=== PATIENT | male | born 1975 | race African-American/Black ===

== ENCOUNTER 2016-08-01 07:52 | Emergency (ER) | payer SELFPAY ==
[~2016-08-01] VITALS: Ht 172.7 cm; Wt 65.8 kg
[2016-08-01 07:55] VITALS: BP 112/74
[2016-08-01] MEDS ORDERED: NITROGLYCERIN SINGLE TAB 0.4 MG SL ONE (08:17)
[2016-08-01] MEDS ORDERED: AZITHROMYCIN 500 MG TABLET PO ONE (08:30)
[2016-08-01] MEDS ORDERED: CEFTRIAXONE 250 MG IM ONE (08:30)
[2016-08-01] MEDS ORDERED: AZITHROMYCIN 250 MG TABLET ONE (08:37)
[2016-08-01] MEDS ORDERED: CEFTRIAXONE 1,000 MG ONE (08:38)
== END 2016-08-01 09:22 | disposition home or self-care (01) ==
LOC: ED 09:16
DX: Z20.2 Contact with and (suspected) exposure to infections with a predominantly sexual mode of transmission (principal); F17.210 Nicotine dependence, cigarettes, uncomplicated
CPT/HCPCS: 87491; 87591; 96372; 99284; J0696

== ENCOUNTER 2017-02-04 20:13 | Emergency (ER) | payer OTHER ==
[~2017-02-04] VITALS: Ht 172.7 cm; Wt 65.1 kg
[2017-02-04] MEDS ORDERED: KETOROLAC 30 MG/1 ML ONE (20:53)
[2017-02-04] MEDS ORDERED: KETOROLAC 30 MG/1 ML IVPush ONE (21:00)
[2017-02-04 21:13] LABS: BASOPHILS # (AUTO) 0.05 x10^3/uL (0-0.1); BASOPHILS % (AUTO) 1 % (0-1); EOSINOPHILS # (AUTO) 0.46 x10^3/uL (0-0.4); EOSINOPHILS % (AUTO) 7 % (1-7); LYMPHOCYTES # (AUTO) 3.56 x10^3/uL (1-3.4); LYMPHOCYTES % (AUTO) 50 % (22-44); MD NO; MEAN CORPUSCULAR HEMOGLOBIN 28.6 pg (27.5-34.5); MEAN CORPUSCULAR HGB CONC 32.9 g/dL (33.2-36.2); MEAN CORPUSCULAR VOLUME 87.1 fL (81-97); MEAN PLATELET VOLUME 7.8 fL (7.4-10.4); MONOCYTES # (AUTO) 0.38 x10^3/uL (0.2-0.8); MONOCYTES % (AUTO) 5 % (2-9); NEUTROPHILS # (AUTO) 2.65 x10^3/uL (1.8-6.8); NEUTROPHILS % (AUTO) 37 % (42-75); PLATELET COUNT 313 x10^3/uL (130-400); RED BLOOD COUNT 5.49 x10^6/uL (4.38-5.82); RED CELL DISTRIBUTION WIDTH 13.8 % (9.4-14.8)
[2017-02-04 21:16] LABS: ALANINE AMINOTRANSFERASE 27 U/L (12-78); ALBUMIN 3.7 g/dL (3.4-5.0); ANION GAP 5 mmol/L (5-15); CALCIUM 8.9 mg/dL (8.5-10.1); CHLORIDE 108 mmol/L (98-107); CREATININE 1.23 mg/dL (0.7-1.3)
[2017-02-04 21:20] LABS: ALKALINE PHOSPHATASE 75 U/L (45-117); BILIRUBIN,TOTAL 0.8 mg/dL (0.2-1.0); TOTAL PROTEIN 7.2 g/dL (6.4-8.2); TROPONIN I < 0.015 ng/mL (0.000-0.045)
[2017-02-04 21:44] VITALS: BP 123/76
== END 2017-02-04 21:55 | disposition home or self-care (01) ==
LOC: ED 21:47
DX: R07.89 Other chest pain (principal); F17.210 Nicotine dependence, cigarettes, uncomplicated
CPT/HCPCS: 36415; 71020; 80053; 83690; 84484; 85025; 93005; 96374; 99285; J1885

== ENCOUNTER 2017-02-20 23:29 | Inpatient (IN) | payer OTHER ==
[~2017-02-20] VITALS: Ht 172.7 cm; Wt 61.4 kg
[2017-02-21] MEDS ORDERED: ONDANSETRON 2MG/ML, 2ML IVPush ONE
[2017-02-21] MEDS ORDERED: KETOROLAC 30 MG/1 ML IVPush ONE
[2017-02-21] MEDS ORDERED: SODIUM CHLORIDE FLUSH 10ML SYR IVF ONE
[2017-02-21] MEDS ORDERED: ONDANSETRON 2MG/ML, 2ML ONE (00:02)
[2017-02-21] MEDS ORDERED: MORPHINE SULFATE 4 MG/ML, 1ML ONE ×3 (00:02→03:04)
[2017-02-21] MEDS ORDERED: KETOROLAC 30 MG/1 ML ONE (00:02)
[2017-02-21] MEDS: MORPHINE SULFATE 4 MG/ML, 1ML IVPush PRN ×2 (00:07→01:31)
[2017-02-21 00:18] LABS: MEAN CORPUSCULAR HEMOGLOBIN 28.1 pg (27.5-34.5); MEAN CORPUSCULAR HGB CONC 32.7 g/dL (33.2-36.2); MEAN CORPUSCULAR VOLUME 85.9 fL (81-97); MEAN PLATELET VOLUME 7.4 fL (7.4-10.4); PLATELET COUNT 218 x10^3/uL (130-400); RED BLOOD COUNT 5.31 x10^6/uL (4.38-5.82); RED CELL DISTRIBUTION WIDTH 13.1 % (9.4-14.8)
[2017-02-21 00:29] LABS: ALBUMIN 3.2 g/dL (3.4-5.0); ANION GAP 9 mmol/L (5-15); CALCIUM 8.9 mg/dL (8.5-10.1); CHLORIDE 107 mmol/L (98-107); CREATININE 0.98 mg/dL (0.7-1.3)
[2017-02-21 00:53] LABS: BASOPHILS # (AUTO) 0.01 x10^3/uL (0-0.1); BASOPHILS % (AUTO) 0 % (0-1); EOSINOPHILS % (AUTO) 0 % (1-7); LYMPHOCYTES # (AUTO) 0.84 x10^3/uL (1-3.4); LYMPHOCYTES % (AUTO) 5 % (22-44); MD SCAN; MONOCYTES # (AUTO) 1.04 x10^3/uL (0.2-0.8); MONOCYTES % (AUTO) 6 % (2-9); NEUTROPHILS # (AUTO) 16.35 x10^3/uL (1.8-6.8); NEUTROPHILS % (AUTO) 90 % (42-75)
[2017-02-21] MEDS ORDERED: AMPICILLIN/SULBACTAM 3 GM in SODIUM CHLORIDE 0.9% 100 ML IV ONE (01:30)
[2017-02-21] MEDS ORDERED: SODIUM CHLORIDE 0.9% 1,000ML IVBOLUS ONE ×2 (01:30)
[2017-02-21] MEDS ORDERED: OMNIPAQUE 350 MG/ML, 100ML BOTTLE ONE (02:49)
[2017-02-21] MEDS ORDERED: LIDOCAINE 1%, 20ML INFIL ONE (03:00)
[2017-02-21] MEDS ORDERED: MORPHINE SULFATE 4 MG/ML, 1ML IVPush ONE (03:00)
[2017-02-21] MEDS ORDERED: BENZOCAINE 20% SPRAY 0.5ML TP ONE (03:00)
[2017-02-21] MEDS ORDERED: LIDOCAINE 1%, 20ML ONE (03:04)
[2017-02-21] MEDS ORDERED: BENZOCAINE 20% SPRAY 0.5ML ONE (03:04)
[2017-02-21] MEDS ORDERED: DEXAMETHASONE 4 MG/ML, 1ML IVPush ONE (04:00)
[2017-02-21] MEDS ORDERED: DEXAMETHASONE 4 MG/ML, 1ML ONE (04:17)
[2017-02-21] MEDS ORDERED: POTASSIUM CHLORIDE 20 MEQ in D5%-0.45% NACL 1,000 ML IV ONE (04:19)
[2017-02-21] MEDS ORDERED: ONDANSETRON 2MG/ML, 2ML IVPush PRN ×2 (04:30→14:00)
[2017-02-21] MEDS ORDERED: SODIUM CHLORIDE FLUSH 10ML SYR IVF PRN (04:30)
[2017-02-21] MEDS ORDERED: MORPHINE SULFATE 4 MG/ML, 1ML IVPush PRN ×2 (04:30→09:30)
[2017-02-21 05:36] VITALS: BP 111/72
[2017-02-21 07:49] VITALS: BP 105/71
[2017-02-21] MEDS ORDERED: HYDROcodone/APAP 7.5-325MG/15ML UDC PO PRN ×2 (09:30→14:00)
[2017-02-21] MEDS: LACTATED RINGERS 1,000 ML IV SCH (09:46)
[2017-02-21] MEDS: DEXTROSE 5% IV SCH ×2 (09:47→20:25)
[2017-02-21] MEDS: DEXAMETHASONE IV SCH ×2 (09:47→20:25)
[2017-02-21] MEDS: AMPICILLIN/SULBACTAM 3 GM in SODIUM CHLORIDE 0.9% 100 ML IV SCH ×2 (11:03→18:04)
[2017-02-21 12:47] VITALS: BP 104/73
[2017-02-21] MEDS ORDERED: FENTANYL PF 250 MCG/5ML ONE (12:49)
[2017-02-21] MEDS ORDERED: MIDAZOLAM 1 MG/ML, 2ML ONE (12:49)
[2017-02-21] MEDS ORDERED: OXYMETAZOLINE NASAL SPRAY 0.05%, 15ML ONE (13:08)
[2017-02-21] MEDS ORDERED: LABETALOL 5MG/ML, 20ML ONE (13:30)
[2017-02-21] MEDS ORDERED: PROPOFOL 10 MG/ML, 20ML ONE (13:30)
[2017-02-21] MEDS ORDERED: ESMOLOL 100 MG/10 ML ONE (13:30)
[2017-02-21] MEDS ORDERED: OXYcodone 5 MG/5 ML ORAL.SOL UDC PO PRN (14:00)
[2017-02-21] MEDS ORDERED: PROMETHAZINE 25 MG/ML, 1ML IV PRN (14:00)
[2017-02-21] MEDS ORDERED: HYDROmorphone 1 MG/ML, 1ML IV PRN (14:00)
[2017-02-21] MEDS ORDERED: MEPERIDINE/PF 25MG/0.5ML IVPush PRN (14:00)
[2017-02-21] MEDS ORDERED: FENTANYL PF 100 MCG/2ML IV PRN (14:00)
[2017-02-21] MEDS ORDERED: ACETAMINOPHEN 325 MG TABLET PO PRN (14:00)
[2017-02-21] MEDS ORDERED: HYDROmorphone 1 MG/ML, 1ML ONE (14:10)
[2017-02-21] MEDS ORDERED: hydrALAzine 20 MG/ML, 1ML ONE (15:41)
[2017-02-21] MEDS ORDERED: hydrALAzine 20 MG/ML, 1ML IV PRN ×2 (16:00→17:30)
[2017-02-21] MEDS: HYDROmorphone 2MG TABLET PO PRN ×2 (18:11→22:16)
[2017-02-21 20:18] VITALS: BP 128/70
[2017-02-22 00:13] VITALS: BP 119/72
[2017-02-22] MEDS: AMPICILLIN/SULBACTAM 3 GM in SODIUM CHLORIDE 0.9% 100 ML IV SCH ×2 (01:55→10:12)
[2017-02-22] MEDS: HYDROmorphone 2MG TABLET PO PRN ×3 (02:24→10:46)
[2017-02-22] MEDS: DEXTROSE 5% IV SCH (03:31)
[2017-02-22] MEDS: DEXAMETHASONE IV SCH (03:31)
[2017-02-22 03:53] VITALS: BP 111/66
[2017-02-22 07:29] VITALS: BP 114/62
[2017-02-22] MEDS: LACTATED RINGERS 1,000 ML IV SCH (09:49)
[2017-02-22] MEDS ORDERED: HYDR2TAB29 PO (11:16)
[2017-02-22] MEDS ORDERED: CEPH-368 PO (11:16)
== END 2017-02-22 11:25 | disposition home or self-care (01) | DRG 854 ==
LOC: ED 23:48 → EDIP 02-21 04:38 → 4NOR 02-21 04:40 → DCLOUNGE 02-22 11:05
PROVIDERS: ADMIT Otolaryngology; ATTEND Otolaryngology
PROC: 0CTPXZZ Resection of Tonsils, External Approach (ICD-10-PCS; principal; 2017-02-21 13:30)
DX: A41.9 Sepsis, unspecified organism (principal); J36 Peritonsillar abscess; Z87.891 Personal history of nicotine dependence
CPT/HCPCS: 10060; 36415; 70491; 80048; 82040; 85025; 87040; 88304; 96361; 96365; 96375; 96376; J0295; J1100; J1170; J1885; J2250; J2405; J2704; J3010; J3480; J3490; Q9967; J7030; J7120

== ENCOUNTER 2017-08-14 17:37 | Emergency (ER) | payer SELFPAY ==
[~2017-08-14] VITALS: Ht 172.7 cm; Wt 57.5 kg
[~2017-08-14 17:37] MED LIST: CEPH-368 PO; HYDR2TAB29 PO
[2017-08-14 17:50] VITALS: BP 112/77
[2017-08-14 18:43] LABS: BASOPHILS # (AUTO) 0.04 x10^3/uL (0-0.1); BASOPHILS % (AUTO) 0 % (0-1); EOSINOPHILS # (AUTO) 0.14 x10^3/uL (0-0.4); EOSINOPHILS % (AUTO) 1 % (1-7); LYMPHOCYTES # (AUTO) 2.37 x10^3/uL (1-3.4); LYMPHOCYTES % (AUTO) 24 % (22-44); MD NO; MEAN CORPUSCULAR HEMOGLOBIN 28.9 pg (27.5-34.5); MEAN CORPUSCULAR HGB CONC 33.7 g/dL (33.2-36.2); MEAN CORPUSCULAR VOLUME 85.9 fL (81-97); MEAN PLATELET VOLUME 7.7 fL (7.4-10.4); MONOCYTES # (AUTO) 0.79 x10^3/uL (0.2-0.8); MONOCYTES % (AUTO) 8 % (2-9); NEUTROPHILS # (AUTO) 6.63 x10^3/uL (1.8-6.8); NEUTROPHILS % (AUTO) 67 % (42-75); PLATELET COUNT 337 x10^3/uL (130-400); RED BLOOD COUNT 5.14 x10^6/uL (4.38-5.82); RED CELL DISTRIBUTION WIDTH 13.6 % (9.4-14.8)
[2017-08-14 18:44] LABS: ALANINE AMINOTRANSFERASE 41 U/L (12-78); ALBUMIN 3.9 g/dL (3.4-5.0); ANION GAP 6 mmol/L (5-15); CALCIUM 9.6 mg/dL (8.5-10.1); CHLORIDE 106 mmol/L (98-107); CREATININE 1.14 mg/dL (0.7-1.3)
[2017-08-14 18:46] LABS: ALKALINE PHOSPHATASE 91 U/L (45-117); BILIRUBIN,TOTAL 0.5 mg/dL (0.2-1.0); TOTAL PROTEIN 7.7 g/dL (6.4-8.2)
== END 2017-08-14 20:32 | disposition home or self-care (01) ==
LOC: ED 20:00
DX: J00 Acute nasopharyngitis [common cold] (principal)
CPT/HCPCS: 36415; 71046; 80053; 85025; 99285